=== PATIENT | male | born 1955 | race Caucasian/White ===

== ENCOUNTER 2018-10-25 16:21 | Emergency (ER) | payer BC ==
[2018-10-25] MEDS ORDERED: ENALAPRILAT INJ 1.25 MG/ML VIAL IV ONE (16:27)
--- NOTE | 2018-10-25 16:29 | ED.PDOC ---
History of Present Illness - General Chief Complaint: Headache Stated Complaint: Severe H/A, nausea Time Seen by Provider: 10/25/18 16:25 Source: patient, family Exam Limitations: no limitations - History of Present Illness Initial Comments: patient comes in today for severe unrelenting headache since approximately 9:30 this morning. Patient states 4 weeks ago she was sitting on the side of her bed slipped and fell off and caused injury to the left side of her scalp. She has still a resolving hematoma and scab in that area but states since then she's been dealing primarily with left-sided facial and jaw pain. She did go see a dental physician who did x-rays workup and could not find anything wrong although she persists with severe pain. Patient states she's been on Ultram for this. Patient has been dealing with this consistently since then. However, today at 9:30 she had sudden onset of severe bilateral global headache that sharp and nonrelenting. She's had nausea and dry heaving with it. She's had no fever or chills. She did have an episode with the pain when she started shaking almost like chills or "seizure". However, she was awake, alert throughout the episode and she remembers exactly what happened with no postictal state. Patient has had no cough or cold symptoms. She's had no blurry vision or double vision. Patient does have some photophobia. Patient admits that she normally has hypertension and supposed to be on medication but stopped taking it 2 weeks ago. When asked if she was having problems with the medicine patient states no she "just is very lazy" about taking pills. She also has irritable bowel syndrome. Timing/Duration: 4-6 hours, increasing Quality: severe, constant, sharp Head Injury Location: global Recent Head Trauma: head trauma > 24 hrs ago Improving Factors: nothing Worsening Factors: movement Associated Symptoms: nausea/vomiting, numbness in legs/feet, weakness Allergies/Adverse Reactions: Allergies NO KNOWN ALLERGY Allergy (Verified 10/25/18 16:26) Home Medications: Ambulatory Orders Tramadol HCl 50 mg PO TID PRN 10/25/18 amLODIPine BESYLATE [Norvasc] 5 mg PO DAILY #30 tab 10/25/18 traZODone HCL [Desyrel] 100 mg PO BEDTIME 10/25/18 Review of Systems - Review of Systems Constitutional: States: chills, other - dizziness (no vertigo). Denies: fever EENTM: Denies: blurred vision, double vision, nose congestion, throat pain Respiratory: States: no symptoms reported. Denies: cough, short of breath, wheezing Cardiology: States: no symptoms reported. Denies: chest pain, edema, palpitations Gastrointestinal/Abdominal: States: nausea. Denies: abdominal pain, diarrhea, vomiting Genitourinary: States: no symptoms reported Musculoskeletal: States: see HPI Neurological: States: see HPI Past Medical History (General) - Patient Medical History Hx Hypertension: Yes Hx Other PMH: Yes - irritable bowel syndrome Family Medical History - Family History Mother Family History: No Known Physical Exam - Physical Exam General Appearance: Anxious, Obvious distress Eyes, Ears, Nose, Throat Exam: PERRL/EOMI, normal ENT inspection, TMs normal, pharynx normal Neck: non-tender, full range of motion, supple, normal inspection Cardiovascular/Chest: normal peripheral pulses, regular rate, rhythm, no edema, no gallop, no JVD, no murmur Respiratory: chest non-tender, normal breath sounds, no respiratory distress Gastrointestinal/Abdominal: normal bowel sounds, non tender, soft 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 Patient still has severe headache but states she does not feel as dizzy, weak, or confused. She still has some numbness of both of her hands. Patient on questioning states she does know that she has elevation of liver function tests. She is currently seeing a woods rider. On asked if she drinks, patient states that her woods rider does not feel like that is what is causing the liver problem. Patient states she continues to drink alcohol approximately 3 glasses of wine 4 times a week but has drank more in the past. She does not take any Tylenol but admits she was told not to take Motrin and she's been taking quite a bit that for the pain in her jaw. Patient does not know what her blood work normally is aren't exactly how high dose liver enzymes are. However, she states that they did check on her earlier this week and she has close follow-up with her woods rider scheduled. 10/25/18 17:14 10/25/18 18:24 patient states she is back to the baseline pain she has been dealing with. All numbness, weakness, and confusion has resolved. Her has left to get her prescription for her norvasc filled that she will start tonight. She states she understands importance to being compliant with her medication and has an appointment already with here PCP on Saturday. She understands with her liver disease she can not have any tylenol or ETOH, even small amounts should be avoided. Copy of labs and CT given to patient so that she can give to her GI and PCP doctors. We have also suggested that she see a neurologist for the 4 weeks history of facial pain and suspect trigeminal neuralgia. 10/25/18 18:27 - Results/Orders Results/Orders: Laboratory Results WBC 6.2 K/mm3 (4.8-10.8) 10/25/18 16:40 RBC 4.30 M/mm3 (4.70-6.10) L 10/25/18 16:40 Hgb 14.2 gm/dL (14.0-18.0) 10/25/18 16:40 Hct 42.5 % (42.0-52.0) 10/25/18 16:40 MCV 98.9 fl (80.0-94.0) H 10/25/18 16:40 MCH 33.2 pg (27.0-31.0) H 10/25/18 16:40 MCHC 33.5 g/dL (33.0-37.0) 10/25/18 16:40 RDW 14.2 % (11.5-14.5) 10/25/18 16:40 Plt Count 272 K/mm3 (130-400) 10/25/18 16:40 MPV 7.4 fl (7.40-10.4) 10/25/18 16:40 Absolute Neuts (auto) 4.30 K/uL (1.8-6.8) 10/25/18 16:40 Absolute Lymphs (auto) 1.30 K/uL (1.0-3.4) 10/25/18 16:40 Absolute Monos (auto) 0.40 K/uL (0.2-0.8) 10/25/18 16:40 Absolute Eos (auto) 0.10 K/uL (0.0-0.4) 10/25/18 16:40 Absolute Basos (auto) 0.10 K/uL (0.0-0.1) 10/25/18 16:40 Neutrophils % 69.8 % (42.0-78.0) 10/25/18 16:40 Lymphocytes % 20.4 % (20.0-50.0) 10/25/18 16:40 Monocytes % 6.3 % (2.0-9.0) 10/25/18 16:40 Eosinophils % 2.0 % (1.0-5.0) 10/25/18 16:40 Basophils % 1.5 % (0.0-2.0) 10/25/18 16:40 Sodium 137 mmol/L (135-145) 10/25/18 16:40 Potassium 3.6 mmol/L (3.6-5.0) 10/25/18 16:40 Chloride 100 mmol/L (101-111) L 10/25/18 16:40 Carbon Dioxide 20 mmol/L (21-31) L 10/25/18 16:40 Anion Gap 20.6 (12-18) H 10/25/18 16:40 BUN 11 mg/dL (7-18) 10/25/18 16:40 Creatinine 0.88 mg/dL (0.6-1.3) 10/25/18 16:40 BUN/Creatinine Ratio 12.5 (10-20) 10/25/18 16:40 Random Glucose 101 mg/dL (70-105) 10/25/18 16:40 Serum Osmolality 273.4 mOsm/L (275-295) L 10/25/18 16:40 Lactic Acid 1.5 mmol/L (0.5-2.2) 10/25/18 16:40 Calcium 9.4 mg/dL (8.4-10.2) 10/25/18 16:40 Total Bilirubin 1.4 mg/dL (0.2-1.0) H 10/25/18 16:40 AST 383 IU/L (10-42) H 10/25/18 16:40 ALT 297 IU/L (10-60) H 10/25/18 16:40 Alkaline Phosphatase 171 IU/L (42-121) H 10/25/18 16:40 Creatine Kinase 262 IU/L (38-174) H* 10/25/18 16:40 CK-MB (CK-2) 4.5 ng/mL (0.0-4.4) H 10/25/18 16:40 CK-MB (CK-2) % 1.72 % (0.0-3.5) 10/25/18 16:40 Troponin I < 0.02 ng/mL (0.01-0.05) 10/25/18 16:40 Serum Total Protein 7.6 gm/dL (6.4-8.2) 10/25/18 16:40 Albumin 4.3 g/dl (3.2-5.5) 10/25/18 16:40 Globulin 3.3 gm/dL (2.3-3.5) 10/25/18 16:40 Albumin/Globulin Ratio 1.3 (1.1-1.9) 10/25/18 16:40 Head CLINICAL HISTORY: 63 years Male severe headache/weakness COMPARISON: None TECHNIQUE: Images were obtained in axial, sagittal, and coronal planes. This exam was performed according to our departmental dose-optimization program which includes use of Automated Exposure Control, adjustment of the mA and/or kV according to patient size and/or use of iterative reconstruction technique. FINDINGS: Ventricular system appears normal. No abnormal areas of increased or decreased attenuation are seen involving the brain parenchyma. No extra-axial fluid collections noted. No evidence for skull fracture. Symmetric aeration mastoid air cells bilaterally. Unremarkable paranasal sinuses. Fatty replaced parotid glands bilaterally. IMPRESSION: No acute intracranial abnormality. No evidence for hemorrhage, mass lesion, or large acute infarction. Departure - Departure Clinical Impression: Hypertensive emergency Disposition: Discharge to Home or Self Care Condition: Good Departure Forms: ED Discharge - Pt. Copy, Patient Portal Self Enrollment Instructions: DI for Headache Prescriptions: amLODIPine BESYLATE [Norvasc] 5 mg PO DAILY #30 tab Home Medications: Ambulatory Orders Tramadol HCl 50 mg PO TID PRN 10/25/18 amLODIPine BESYLATE [Norvasc] 5 mg PO DAILY #30 tab 10/25/18 traZODone HCL [Desyrel] 100 mg PO BEDTIME 10/25/18 Additional Instructions: return to ER for increased pain, weakness, change in vision or sensation. Stop all ETOH and tylenol use. Take BP as prescribed and re-start Norvasc tonight.
[2018-10-25] MEDS ORDERED: ONDANSETRON ODT 8 MG TAB SL ONE (17:00)
--- NOTE | 2018-10-25 17:04 | CT ---
EXAM DESCRIPTION: Head CLINICAL HISTORY: 63 years Male severe headache/weakness COMPARISON: None TECHNIQUE: Images were obtained in axial, sagittal, and coronal planes. This exam was performed according to our departmental dose-optimization program which includes use of Automated Exposure Control, adjustment of the mA and/or kV according to patient size and/or use of iterative reconstruction technique. FINDINGS: Ventricular system appears normal. No abnormal areas of increased or decreased attenuation are seen involving the brain parenchyma. No extra-axial fluid collections noted. No evidence for skull fracture. Symmetric aeration mastoid air cells bilaterally. Unremarkable paranasal sinuses. Fatty replaced parotid glands bilaterally. IMPRESSION: No acute intracranial abnormality. No evidence for hemorrhage, mass lesion, or large acute infarction. Electronically signed by: Brittni Dos Santos MD 10/25/2018 5:00 PM CDT
[2018-10-25 19:18] VITALS: O2SAT 96
[2018-10-25 19:20] VITALS: BP 150/90; TEMP 98.4
== END 2018-10-25 19:08 | disposition home or self-care (01) ==
LOC: ER 16:21
DX: I16.1 Hypertensive emergency (principal); R51 Headache; R11.2 Nausea with vomiting, unspecified; K58.9 Irritable bowel syndrome, unspecified

== ENCOUNTER 2019-04-10 20:46 | Emergency (ER) | payer BC ==
[2019-04-10 21:17] VITALS: TEMP 97.8
[2019-04-10] MEDS ORDERED: HYDROcodone 10MG/APAP 325MG 1 EA TAB PO ONE (21:41)
--- NOTE | 2019-04-10 21:47 | ED.PDOC ---
History of Present Illness - General Chief Complaint: Trauma Stated Complaint: missed a step and fell on road outside Time Seen by Provider: 04/10/19 21:37 Source: patient Exam Limitations: no limitations Additional Information: Mrs. Sorenson is a 63-year-old female who presents to the ED following a fall with chief complaint of left wrist pain prior to arrival. patient was walking and lost her balance on an unsteady walkway and fell onto her left outstretched arm. Patient complains of pain to her distal forearm, wrist, and thumb region. Patient denies any other injuries. She specifically denies loss of consciousness, head injury, neck pain, chest pain, back pain, and dizziness. Patient rates her pain as an 8 out of 10, , sharp. Patient is otherwise asymptomatic - History of Present Illness Allergies/Adverse Reactions: Allergies NO KNOWN ALLERGY Allergy (Verified 10/25/18 16:26) Home Medications: Ambulatory Orders Tramadol HCl 50 mg PO TID PRN 10/25/18 amLODIPine BESYLATE [Norvasc] 5 mg PO DAILY #30 tab 10/25/18 traZODone HCL [Desyrel] 100 mg PO BEDTIME 10/25/18 Acetaminophen W/ Codeine [Tylenol W/ CODEINE #3] 1 ea PO Q6H PRN #20 04/11/19 Review of Systems - Review of Systems Constitutional: States: no symptoms reported EENTM: States: no symptoms reported Respiratory: States: no symptoms reported. Denies: short of breath Cardiology: States: no symptoms reported. Denies: chest pain, palpitations Genitourinary: States: no symptoms reported. Denies: pain Musculoskeletal: States: see HPI Neurological: States: no symptoms reported. Denies: numbness, weakness All other Systems: Reviewed and Negative Past Medical History (General) - Patient Medical History Hx Stroke: No Hx Congestive Heart Failure: No Hx Hypertension: Yes Hx Diabetes: No Hx Gastroesophageal Reflux: No - Irritable bowel syndrome Hx MRSA: No - Vaccination History Hx Tetanus, Diphtheria Vaccination: No Hx Influenza Vaccination: No Hx Pneumococcal Vaccination: No - Social History Hx Tobacco Use: Yes - Quit 08/2018 Hx Alcohol Use: No Family Medical History - Family History Mother Family History: No Known Physical Exam - Physical Exam Head Injury: no evidence of injury Eye Exam: bilateral normal ENT Exam: no evidence of ENT injury Neck Exam: full range of motion, normal inspection Extremity Exam: other - Patient with moderate edema and tenderness to palpation to her left distal radius, wrist, and proximal hand over the first metacarpal bone. Range of motion wrist due to pain. 2+ radial pulse. Skin is closed. Mild ecchymoses over the thenar eminence. Neurologic: no motor/sensory deficits - normal sensation to light touch distal aspect of all digits. Progress - Progress Progress: 04/10/19 21:50 differential diagnosis includes but is not limited to fracture, contusion, sprain, dislocation 04/11/19 00:38 Patient with nondisplaced distal radius fracture. A volar wrist splint with thumb spica extension was placed on forearm and hand and patient indicates that she has her own orthopedic doctor in [place] and she will follow-up with him on Saturday. Will DC with Tylenol 3 and patient to rest and elevate arm and she will see her orthopedist for definitive management. A copy of her x-ray has been given 2 patient on a disc. Vital signs stable, patient NAD and looks clinically well and is safe for discharge with outpatient follow-up. Follow-up instructions, discharge instructions and return to ED precautions discussed with patient, Patient voices understanding and willingness to comply with instructions. All laboratory and radiographic results have been discussed with the patient, and all questions answered.. Patient happy with plan. Procedures - Splinting Left Arm Hand-Made Type: orthoglass Splint: volar - with thumb spica extension Pre-Proc Neuro Vasc Exam: normal Post-Proc Neuro Vasc Exam: normal, unchanged from pre-exam Departure - Departure Clinical Impression: Distal radius fracture, left Time of Disposition: 00:41 Disposition: Discharge to Home or Self Care Condition: Good Departure Forms: ED Discharge - Pt. Copy, Patient Portal Self Enrollment Instructions: DI for Trauma, Colles' Fracture (DC) Activity: no pushing/pulling with affected limb Prescriptions: Acetaminophen W/ Codeine [Tylenol W/ CODEINE #3] 1 ea PO Q6H PRN #20 PRN Reason: Pain Home Medications: Ambulatory Orders Tramadol HCl 50 mg PO TID PRN 10/25/18 amLODIPine BESYLATE [Norvasc] 5 mg PO DAILY #30 tab 10/25/18 traZODone HCL [Desyrel] 100 mg PO BEDTIME 10/25/18 Acetaminophen W/ Codeine [Tylenol W/ CODEINE #3] 1 ea PO Q6H PRN #20 04/11/19
--- NOTE | 2019-04-10 22:25 | RAD ---
EXAM DESCRIPTION: Forearm,Left CLINICAL HISTORY: 63 years Male fall COMPARISON: None TECHNIQUE: Two images of the left forearm were obtained. FINDINGS: Comminuted impacted fractures distal radius. No fractures mid or proximal radius. No fractures involving the ulna. Normal bony mineralization. No erosive or lytic lesions seen. IMPRESSION: Comminuted impacted fractures distal radius. Electronically signed by: Brittni Dos Santos MD 04/10/2019 10:23 PM CDT
--- NOTE | 2019-04-10 22:26 | RAD ---
EXAM DESCRIPTION: Hand,Left 3 Views CLINICAL HISTORY: 63 years Male fall COMPARISON: None TECHNIQUE: Three images of the left hand were obtained. FINDINGS: Comminuted impacted fractures distal radius. No additional fracture seen. Normal bony mineralization. No erosive or lytic lesions seen. IMPRESSION: Comminuted impacted fractures distal radius. Electronically signed by: Brittni Dos Santos MD 04/10/2019 10:24 PM CDT
--- NOTE | 2019-04-10 22:27 | RAD ---
EXAM: XR Left Wrist Complete, 3 or More Views CLINICAL HISTORY: The patient is 63 years old and is Male; fall TECHNIQUE: Frontal, lateral and oblique views of the left wrist. COMPARISON: No relevant prior studies available. FINDINGS: BONES/JOINTS: The bones are osteopenic. Impacted distal radial metadiaphyseal fracture is present. No dislocation. SOFT TISSUES: Soft tissue swelling about the wrist is noted. No radiopaque foreign body. IMPRESSION: Distal radius fracture. Electronically signed by: Araceli Melvin MD 04/10/2019 10:25 PM CDT
[2019-04-10] MEDS ORDERED: MORPHINE SULFATE INJ 10 MG/ML VIAL IM ONE (22:32)
[2019-04-10] MEDS ORDERED: METOCLOPRAMIDE HCL 5 MG TAB PO ONE (22:33)
[2019-04-10] MEDS ORDERED: HYDROmorphone HCL INJ 2 MG/ML VIAL IM ONE (23:45)
[2019-04-11 00:22] VITALS: BP 124/78; O2SAT 97
== END 2019-04-11 00:48 | disposition home or self-care (01) ==
LOC: ER 20:46
DX: S52.502A Unspecified fracture of the lower end of left radius, initial encounter for closed fracture (principal); I10 Essential (primary) hypertension; Z87.891 Personal history of nicotine dependence; Z79.899 Other long term (current) drug therapy; W18.30XA Fall on same level, unspecified, initial encounter; Y93.01 Activity, walking, marching and hiking; Y92.410 Unspecified street and highway as the place of occurrence of the external cause
CPT/HCPCS: 73090; 73110; 73130; J1170; J2270